=== PATIENT | female | born 1980 | race Two or more races ===

== ENCOUNTER 2017-12-16 17:44 | Emergency (ER) | payer OTHER ==
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
[2017-12-16] MEDS ORDERED: IBUPROFEN 600 MG TAB PO ONE ×2 (19:49→19:50)
[2017-12-16 19:58] VITALS: BP 118/70
== END 2017-12-16 19:58 | disposition home or self-care (01) ==
DX: S16.1XXA Strain of muscle, fascia and tendon at neck level, initial encounter (principal); S06.0X9A Concussion with loss of consciousness of unspecified duration, initial encounter; W22.10XA Striking against or struck by unspecified automobile airbag, initial encounter; V89.2XXA Person injured in unspecified motor-vehicle accident, traffic, initial encounter